=== PATIENT | female | born 1995 | race American Indian/Alaskan Native ===

== ENCOUNTER 2019-05-27 08:29 | Emergency (ER) | payer SELFPAY ==
[2019-05-27 08:35] VITALS: BP 134/68
[2019-05-27 09:01] LABS: Bacteria,Urine 1+ /HPF (Negative); Bilirubin,Urine NEG (Negative); Blood,Urine NEG (Negative); Color,Urine Yellow (Yellow); Mucus,Urine 3+ /HPF; Urobilinogen,Urine < 2.0 mg/dL (<2.0)
[2019-05-27 09:03] LABS: Basophils # (Auto) 0.1 K/mm3 (0.0-0.1); Basophils % (Auto) 0.7 % (0.0-1.8); Hematocrit 43.9 % (30.3-42.9); Hemoglobin 14.6 gm/dl (10.1-14.3); Lymphocytes # (Auto) 1.2 K/mm3 (1.2-5.4); Lymphocytes % (Auto) 14.7 % (13.4-35.0); Mean Corpuscular HGB Conc 33 % (30-34); Mean Corpuscular Volume 88 fl (79-97); Monocytes # (Auto) 0.3 K/mm3 (0.0-0.8); Monocytes % (Auto) 3.8 % (0.0-7.3); Platelet Count 290 K/mm3 (140-440); Red Blood Count 4.98 M/mm3 (3.65-5.03); Red Cell Distribution Width 13.9 % (13.2-15.2)
[2019-05-27] MEDS ORDERED: ONDANSETRON 4 MG/2 ML INJ IV ONE ×2 (09:44→11:46)
[2019-05-27] MEDS ORDERED: SODIUM CHLORIDE 0.9% 1000 ML 1,000 ML IV ONE (09:44)
--- NOTE | 2019-05-27 09:44 | Emergency Department Report ---
Vomiting/Diarrhea - HPI Chief Complaint: Nausea/Vomiting/Diarrhea Stated Complaint: VOMITTING, CRAMPS Time Seen by Provider: 05/27/19 08:50 Duration: Today Severity: moderate Nausea/Vomiting Severity: Mild Diarrhea Severity: None Pain Location: Suprapubic Pain Severity: Moderate Symptoms: No Watery Diarrhea, No Bloody diarrhea, No Fever, No Able to Tolerate Fluids, No Recent Unusual Foods, No Recent Untreated Water, No Recent use of Antibiotics, No Family w/ Similar Symptoms, No Contacts w/ Similar Symptoms, No Rash, No Hematuria, No Recent URI Symptoms Other History: This is a 23-year-old female who presents to ED complaining of nausea and vomiting that started last night around 7 PM. Patient also states that she is having some abdominal cramps due to her menstrual cycle. 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 She denies unusual foods or new symptoms as stated above. ED Review of Systems ROS: Stated complaint: VOMITTING, CRAMPS Other details as noted in HPI Comment: All other systems reviewed and negative ED Past Medical Hx - Past Medical History Previous Medical History?: No - Surgical History Past Surgical History?: No - Social History Smoking Status: Never Smoker Substance Use Type: Alcohol - Medications Home Medications: Home Medications Medication Instructions Recorded Confirmed Last Taken Type Ibuprofen [Motrin] 600 mg PO Q8H PRN #30 tablet 05/27/19 Unknown Rx Ondansetron [Zofran ODT TAB] 8 mg PO Q12HR #20 tab.rapdis 05/27/19 Unknown Rx traMADol [Ultram 50 MG tab] 50 mg PO Q6HR PRN #10 tablet 05/27/19 Unknown Rx Vomiting Diarrhea Exam - Exam General: Vital signs noted. No distress. Alert and acting appropriately. HEENT: Yes Moist Mucous Membranes, No Pharyngeal Erythema, No Pharyngeal Exudates, No Rhinorrhea, No Conjuctival Injection, No Frontal Tenderness, No Maxillary Tenderness Neck: No Adenopathy, No Rigidity Lungs: Yes Clear Lung Sounds, Yes Good Air Exchange, No Wheezes, No Stridor, No Cough, No Nasal Flaring, No Retractions, No Use of Accessory Muscles Heart exam: Regular: Yes, Murmur: No, Tachycardia: No Abdomen: Tenderness: No, Peritoneal Signs: No, Distention: No, Hyperactive Bowel sounds: No Skin exam: Rash: No, Edema: No, Normal turgor: Yes Neurologic: Alert and oriented, no deficits. Musculoskeletal: Unremarkable. ED Course Vital Signs 05/27/19 08:30 Temperature 99.0 F Pulse Rate 67 Respiratory 18 Rate Blood Pressure 134/68 O2 Sat by Pulse 100 Oximetry ED Medical Decision Making - Lab Data Result diagrams: 05/27/19 08:51 Laboratory Last Values WBC 8.1 K/mm3 (4.5-11.0) 05/27/19 08:51 RBC 4.98 M/mm3 (3.65-5.03) 05/27/19 08:51 Hgb 14.6 gm/dl (10.1-14.3) H 05/27/19 08:51 Hct 43.9 % (30.3-42.9) H 05/27/19 08:51 MCV 88 fl (79-97) 05/27/19 08:51 MCH 29 pg (28-32) 05/27/19 08:51 MCHC 33 % (30-34) 05/27/19 08:51 RDW 13.9 % (13.2-15.2) 05/27/19 08:51 Plt Count 290 K/mm3 (140-440) 05/27/19 08:51 Lymph % (Auto) 14.7 % (13.4-35.0) 05/27/19 08:51 [place] % (Auto) 3.8 % (0.0-7.3) 05/27/19 08:51 Eos % (Auto) 0.0 % (0.0-4.3) 05/27/19 08:51 Baso % (Auto) 0.7 % (0.0-1.8) 05/27/19 08:51 Lymph # 1.2 K/mm3 (1.2-5.4) 05/27/19 08:51 [place] # 0.3 K/mm3 (0.0-0.8) 05/27/19 08:51 Eos # 0.0 K/mm3 (0.0-0.4) 05/27/19 08:51 Baso # 0.1 K/mm3 (0.0-0.1) 05/27/19 08:51 Seg Neutrophils % 80.8 % (40.0-70.0) H 05/27/19 08:51 Seg Neutrophils # 6.5 K/mm3 (1.8-7.7) 05/27/19 08:51 Sodium 142 mmol/L (137-145) 05/27/19 08:51 Potassium 3.7 mmol/L (3.6-5.0) 05/27/19 08:51 Chloride 103.0 mmol/L (98-107) 05/27/19 08:51 Carbon Dioxide 21 mmol/L (22-30) L 05/27/19 08:51 Anion Gap 22 mmol/L 05/27/19 08:51 BUN 5 mg/dL (7-17) L 05/27/19 08:51 Creatinine 0.7 mg/dL (0.7-1.2) 05/27/19 08:51 Estimated GFR > 60 ml/min 05/27/19 08:51 BUN/Creatinine Ratio 7 % 05/27/19 08:51 Glucose 132 mg/dL (65-100) H 05/27/19 08:51 Calcium 9.7 mg/dL (8.4-10.2) 05/27/19 08:51 Total Bilirubin 0.30 mg/dL (0.1-1.2) 05/27/19 08:51 AST 19 units/L (5-40) 05/27/19 08:51 ALT 12 units/L (7-56) 05/27/19 08:51 Alkaline Phosphatase 58 units/L (35-129) 05/27/19 08:51 Total Protein 8.5 g/dL (6.3-8.2) H 05/27/19 08:51 Albumin 4.8 g/dL (3.9-5) 05/27/19 08:51 Albumin/Globulin Ratio 1.3 % 05/27/19 08:51 HCG, Qual Negative (Negative) 05/27/19 08:51 Urine Color Yellow (Yellow) 05/27/19 08:45 Urine Turbidity Clear (Clear) 05/27/19 08:45 Urine pH 7.0 (5.0-7.0) 05/27/19 08:45 Ur Specific [place] 1.033 (1.003-1.030) H 05/27/19 08:45 Urine Protein 100 mg/dl mg/dL (Negative) 05/27/19 08:45 Urine Glucose (UA) Neg mg/dL (Negative) 05/27/19 08:45 Urine Ketones 20 mg/dL (Negative) 05/27/19 08:45 Urine Blood Neg (Negative) 05/27/19 08:45 Urine Nitrite Neg (Negative) 05/27/19 08:45 Urine Bilirubin Neg (Negative) 05/27/19 08:45 Urine Urobilinogen < 2.0 mg/dL (<2.0) 05/27/19 08:45 Ur Leukocyte Esterase Neg (Negative) 05/27/19 08:45 Urine WBC (Auto) 1.0 /HPF (0.0-6.0) 05/27/19 08:45 Urine RBC (Auto) 14.0 /HPF (0.0-6.0) 05/27/19 08:45 U Epithel Cells (Auto) 3.0 /HPF (0-13.0) 05/27/19 08:45 Urine Bacteria (Auto) 1+ /HPF (Negative) 05/27/19 08:45 Urine Mucus 3+ /HPF 05/27/19 08:45 - Medical Decision Making 23-year-old female presents with dysmenorrhea with vomiting. all labs within normal limits. Urinalysis negative, test negative. Patient received IV fluids pain medication and Zofran in ED. Patient is in no acute distress. I discussed all lab findings with the patient. Critical care attestation.: If time is entered above; I have spent that time in minutes in the direct care of this critically ill patient, excluding procedure time. ED Disposition Clinical Impression: Dysmenorrhea, Nausea & vomiting Disposition: -01 TO HOME OR SELFCARE Is pt being admited?: No Does the pt Need Aspirin: No Condition: Stable Instructions: Dysmenorrhea (ED), Acute Nausea and Vomiting (ED) Additional Instructions: Make sure to follow up with the primary care physician as discussed. Take all your medications as you've been prescribed. If you have any worsening symptoms or develop new symptoms please return to ED immediately. Prescriptions: Ibuprofen [Motrin] 600 mg PO Q8H PRN #30 tablet PRN Reason: Pain traMADol [Ultram 50 MG tab] 50 mg PO Q6HR PRN #10 tablet PRN Reason: Pain Ondansetron [Zofran ODT TAB] 8 mg PO Q12HR #20 tab.rapdis Referrals: PRIMARY CARE, [Primary Care Provider] - 3-5 Days [facility] [Outside] - 3-5 Days [facility] [Outside] - 3-5 Days Forms: Accompanied Note, Work/School Release Form(ED)
[2019-05-27] MEDS ORDERED: KETOROLAC 30 MG/1 ML INJ IV ONE (10:02)
[2019-05-27 11:27] LABS: Alanine Aminotransferase 12 units/L (7-56); Albumin 4.8 g/dL (3.9-5); BUN/Creatinine Ratio 7; Blood Urea Nitrogen 5 mg/dL (7-17); Calcium 9.7 mg/dL (8.4-10.2); Hemolysis Index 34
[2019-05-27] MEDS ORDERED: ONDANSETRON 4 MG/2 ML INJ ONE (11:46)
== END 2019-05-27 11:52 | disposition home or self-care (01) ==
LOC: ED 08:29
DX: N94.6 Dysmenorrhea, unspecified (principal); Z79.899 Other long term (current) drug therapy
CPT/HCPCS: 36415; 80053; 81001; 84703; 85025; 96361; 96374; 96375; 96376; 99283; J1885; J2405; J7030